=== PATIENT | male | born 1960 | race Caucasian/White ===

== ENCOUNTER 2022-02-04 20:45 | Emergency (ER) | payer OTHER, SELFPAY ==
[2022-02-04 21:33] VITALS: BP 162/79; PULSE 77; RESP 16; TEMP 36.4; O2SAT 96; BMI 28.2
--- NOTE | 2022-02-05 01:21 | ED.WOUNDLAC ---
HPI - Wound/Laceration General Chief Complaint: Wound/Laceration Stated Complaint: right index finger laceration Time Seen by Provider: 02/05/22 01:07 Source: patient Mode of arrival: ambulatory Limitations: no limitations History of Present Illness HPI narrative: This is a 61-year-old male presenting with complaints of laceration to right 2nd digit status post cutting himself with a mandoline slicer. Patient reports some pain at the site, sterile dressing was placed in triage. Patient tells me he is up-to-date on a tetanus shot. Denies numbness or tingling. Patient is right-hand dominant Onset (ago): hour(s) (4) Related Data Previous Rx's Medication Instructions Recorded doxycycline hyclate 100 mg capsule 100 mg PO BID 10 days #20 caps 02/05/22 Allergies Allergy/AdvReac Type Severity Reaction Status Date / Time No Known Allergies Allergy Verified 02/04/22 21:41 Review of Systems Review of Systems: Constitutional : No Fever, No Chills, Cardiovascular : No Chest Pain, No SOB Respiratory : No Dyspnea Gastrointestinal : No abdominal pain Musculoskeletal : No Joint Swelling Skin : No rash, positive skin laceration Neuro : No Weakness, No Numbness Psych : No SI/HI Yes all other systems are reviewed and are negative [facility] Past Medical History Attestation statement: The following information was validated with the patient. Source: old records reviewed and nursing notes reviewed Physical Exam Vital Signs: Vital Signs: Last Vital Signs Temp 97.5 F 02/04/22 21:33 Pulse 77 02/04/22 21:33 Resp 16 02/04/22 21:33 BP 162/79 H 02/04/22 21:33 Pulse Ox 96 02/04/22 21:33 O2 Del Method 02/04/22 21:33 BMI result Body Mass Index 28.2 Vital signs stable Appearance: Alert.? Oriented X3.? No acute distress.? Head: Normocephalic, atraumatic, no step-offs or deformities Eyes: Pupils equal, round and reactive to light.? CVS: Normal heart rate and rhythm.? Pulses normal.? Respiratory: No respiratory distress.? Breath sounds normal.? Abdomen: Soft and nontender.? Skin: Skin warm and dry.? Normal skin color.? Normal skin turgor.?+ 3 cm laceration to distal aspect of right 2nd digit, not involving the nail bed. Capillary refill less than 2 seconds to all upper extremity digits. Radial pulses 2+ equal bilateral. No over strep bilaterally. Sensory and motor intact to bilateral upper extremities. Patient with full range of motion to finger, no pain with palpation. Extremities: No lower extremity edema.? No calf ttp. 5/5 strength to bilateral upper and lower extremities Neuro: Oriented X 3.? No motor deficit.? No sensory deficit Course Reevaluation(s) Reevaluation #1: Six sutures were placed, patient was given strict return precautions, advised to return in 7-10 days for suture removal, educated on signs of infection. At this time I feel comfortable discharge home with PCP follow-up. Time: 01:44 MDM - Wound/Laceration MDM Narrative Medical decision making narrative: 0120 61-year-old male presents with accidental laceration to right 2nd digit status post cutting himself with a mandoline slicer. Up-to-date on tetanus shot. Physical examination significant for + 3 cm laceration to distal aspect of right 2nd digit, not involving the nail bed. Capillary refill less than 2 seconds to all upper extremity digits. Radial pulses 2+ equal bilateral. No over strep bilaterally. Sensory and motor intact to bilateral upper extremities. Patient with full range of motion to finger, no pain with palpation. Plan at this time is to suture the area. Medical Records Attestation: I reviewed the patient's medical records. Lab Data Attestation: I reviewed the patient's lab results. Procedures Laceration Laceration 1: Site: hand Side (If applicable): right Size (cm): 3 Description: linear Local Anesthetic: lidocaine 1% Amount of anesthesia used (mL): 5 Pre-repair: wound explored, irrigated extensively and deep structures intact Skin layer closed with: vicryl Size (cm): 4-0 Number of sutures: 6 Critical Care Time Critical Care Time Critical Care Time: No Discharge Plan Discharge Clinical Impression: Laceration Patient Disposition: Home, Self-Care Additional Instructions: Take your medications as prescribed. If you were prescribed antibiotics today, it is important that you take your medication to their entirety, do not skip any doses, do not finish them early. Follow-up with your primary care provider this week. Return to the emergency department with new or worsening symptoms. Such as fevers, chills, chest pain, shortness of breath, nausea, vomiting, dizziness, headache, vision changes, lethargy redness, swelling, numbness or tingling to the area In case of emergency call 911 Return in 7-10 days for suture removal. Return with any new or worsening symptoms or signs of infection. Doxycycline as an antibiotic that can cause sensitivity indirect sunlight, please avoid direct sunlight. Prescriptions: New doxycycline hyclate 100 mg capsule 100 mg PO BID 10 Days Qty: 20 0RF Referrals: ED Physician,Generic [Physician] - 2 days
--- NOTE | 2022-02-05 03:49 | PC.NURSE ---
seen by KAREY Del Castillo in triage. treatment completed and discharged home.
== END 2022-02-05 03:50 | disposition home or self-care (01) ==
PROVIDERS: Emergency Provider Internal Medicine; PCP Internal Medicine
DX: S61.210A Laceration without foreign body of right index finger without damage to nail, initial encounter (principal); W27.4XXA Contact with kitchen utensil, initial encounter; Y93.G1 Activity, food preparation and clean up; Y92.010 Kitchen of single-family (private) house as the place of occurrence of the external cause; Y99.9 Unspecified external cause status
CPT/HCPCS: 12042; 99282; 99284